=== PATIENT | female | born 1950 | race Caucasian/White ===

== ENCOUNTER 2017-06-22 13:06 | Emergency (ER) | payer MEDICAID ==
[2017-06-22 13:19] VITALS: TEMP 97.7
--- NOTE | 2017-06-22 13:48 | C.PDOC ---
History Of Present Illness 67 yo female come in for evaluation of Right knee pain, intermittent for past few weeks. Pt admits, sustained injury to Right knee, ambulatory since injury with worsening of pain. Pt sts, pain is localized, over Right knee, worse with ambulation. NO edema, no erythema. Pt denies fever, chills, head injury. LOC, headache, neck pain, CP, SOB, abd. pain, denies obvious deformity, new weakness , sensory or vascular deficits to Right leg. Ambulate to Ed for evaluation. Time Seen by Provider: 06/22/17 13:24 Chief Complaint (Nursing): Lower Extremity Problem/Injury History Per: Patient Past Medical History Reviewed: Historical Data, Nursing Documentation, Vital Signs Vital Signs: Last Vital Signs Temp 97.7 F 06/22/17 13:15 Pulse 86 06/22/17 13:15 Resp 16 06/22/17 13:15 BP 163/69 H 06/22/17 13:15 Pulse Ox 98 06/22/17 13:55 - Medical History PMH: Arthritis, HTN Family History: States: No Known Family Hx - Social History Hx Alcohol Use: Yes Hx Substance Use: No Review Of Systems Except As Marked, All Systems Reviewed And Found Negative. Constitutional: Negative for: Fever, Chills Eyes: Negative for: Vision Change ENT: Negative for: Throat Pain Cardiovascular: Negative for: Chest Pain Respiratory: Negative for: Cough, Shortness of Breath, Wheezing Gastrointestinal: Negative for: Vomiting, Abdominal Pain Musculoskeletal: Positive for: Other (Right knee pain) Skin: Negative for: Rash, Bruising Neurological: Negative for: Weakness, Numbness, Altered Mental Status, Headache , Dizziness Physical Exam - Physical Exam Appears: Well, Non-toxic, No Acute Distress Skin: Normal Color, Warm, No Rash, No Ecchymosis Head: Normacephalic Eye(s): bilateral: PERRL Nose: No Flaring, No Discharge Oral Mucosa: Moist Neck: No Midline Cervical Tenderness, No Paracervical Tenderness, No Step Off Deformity, Supple Respiratory: No Decreased Breath Sounds, No Accessory Muscle Use, No Stridor, No Wheezing Extremity: Normal ROM, Tenderness (diffuse tenderness more over posterior aspect Right knee with mild discomfort to Right knee flexion. No edema, no erythema, no defomrity, no neurovascular deficist to Right leg.), Calf Tenderness (mild Right), Capillary Refill (less than 2sec to Right foot), No Deformity, No Swelling Neurological/Psych: Oriented x3, Normal Speech, Normal Motor, Normal Sensation, Normal Reflexes ED Course And Treatment O2 Sat by Pulse Oximetry: 98 Pulse Ox Interpretation: Normal - Other Rad Right knee X-Ray: Interpreted by Me, Viewed By Me Interpretation: (+) mod DJD, no acute fx Right tib/fib X-Ray: Interpreted by Me, Viewed By Me Interpretation: (-) acute fx - CT Scan/US dOPPLER us rle Other Rad Studies (CT/US): Read By Radiologist CT/US Interpretation: (-) FOR DVT, PRELIM REPORT Progress Note: On re-evaluation, pt is afebirle, hemodynamicaly stable. Non- toxic. AMbulatory in ED with stable gait. RLEL exam c/w knee arthralgia. FAROM , no neurovascular deficits, no deformity, no skin changes. Neuorlogicaly intact. Imagings review and appears without acute finidngs. Pt advised on course of ds. ref. to f/u with PMD and Ortho in2 -3 days for re-eavl. return to ED if any new changes. Disposition Counseled Patient/Family Regarding: Diagnosis, Need For Followup, Rx Given - Disposition Referrals: David Bui MD [Staff Provider] - Boris Bhatia III, MD [Staff Provider] - Disposition: HOME/ ROUTINE Disposition Time: 15:02 Condition: STABLE Additional Instructions: MGIUEL WRAP TO KNEE FOR 1 WEEK AVOID PROLONG WALKING FOR 1 WEEK TAKE MEDICATION PRESCRIBED FOLLOW UP WITH PMD AND ORTHO IN 2-3 DAYS FOR RE-EVALUATION. RETURN TO ED IF ANY WORSENING OR NEW CHANGES. Prescriptions: Meloxicam [Mobic] 7.5 mg PO DAILY #20 tab Instructions: Arthralgia (ED), Knee Pain (ED) Forms: Conjecta (Yakut) - Clinical Impression Clinical Impression: Arthritis
--- NOTE | 2017-06-22 14:24 | RAD ---
PROCEDURE: Right Knee Radiographs. HISTORY: Pain. COMPARISON: Comparison made with concurrent radiographs of the right tibia and fibula FINDINGS: BONES: No evidence of acute displaced fracture nor dislocation. JOINTS: Tricompartmental degenerative osteoarthritis. Changes include joint space narrowing most notably affecting the lateral compartment with marginal lateral and medial osteophyte formation. Small posterior patellar osteophytes as well as small anterior superior patella enthesophyte formation. JOINT EFFUSION: Small suprapatellar joint effusion. OTHER FINDINGS: None. IMPRESSION: No evidence of acute displaced fracture nor dislocation. Tricompartmental DJD as described. Small suprapatellar joint effusion.
--- NOTE | 2017-06-22 14:26 | RAD ---
PROCEDURE: Radiographs of the right tibia and fibula. HISTORY: pain COMPARISON: Comparison made with concurrent radiographs of the right knee. TECHNIQUE: Frontal and lateral views obtained. FINDINGS: BONES: No fracture or destructive lesion. Note made of small posterior calcaneal enthesophyte. JOINT SPACES: DJD right knee which has been described in detail on concurrent right knee radiograph report OTHER FINDINGS: None. IMPRESSION: No evidence of acute displaced fracture nor dislocation. DJD right knee.
[2017-06-22 15:42] VITALS: PULSE 75; RESP 18; O2SAT 97
[2017-06-22 15:43] VITALS: BP 139/86
--- NOTE | 2017-06-23 12:05 | VASCLAB ---
PROCEDURE: Right Lower Extremity Venous Duplex Exam. HISTORY: pain PRIORS: None. TECHNIQUE: Right common femoral, femoral, popliteal and posterior tibial, peroneal and great saphenous veins were evaluated. Flow was assessed with color Doppler, compressibility, assessment of phasic flow and augmentation response. Report prepared by KASI Colin, RVT FINDINGS: RIGHT: 1. Common Femoral Vein: 1.1. Compressibility - Fully compressible: Thrombus - None: Flow - Phasic: Augmentation -Normal: Reflux - None. 2. Femoral Vein: 2.1. Compressibility - Fully compressible: Thrombus - None: Flow - Phasic: Augmentation -Normal: Reflux - None. 3. Popliteal Vein: 3.1. Compressibility - Fully compressible: Thrombus - None: Flow - Phasic: Augmentation -Normal: Reflux - None. 4. Posterior Tibial Vein: 4.1. Compressibility - Fully compressible: Thrombus - None: Flow - Phasic: Augmentation -Normal: Reflux - None. 5. Peroneal Vein: 5.1. Compressibility - Fully compressible: Thrombus - None: Flow - Phasic: Augmentation -Normal: Reflux - None. 6. Great Saphenous Vein: 6.1. Compressibility - Fully compressible: Thrombus -None: Flow - Phasic: Augmentation - Normal: Reflux - None. OTHER FINDINGS: IMPRESSION: No evidence of deep or superficial vein thrombosis of the right lower extremity with excellent venous flow. Normal valve function noted of the right side. Normal venous flow noted in the left common femoral vein.
== END 2017-06-22 15:43 | disposition home or self-care (01) ==
LOC: C.ER 13:06
DX: M17.11 Unilateral primary osteoarthritis, right knee (principal)